=== PATIENT | male | born 1980 | race Caucasian/White ===

== ENCOUNTER 2021-02-27 11:35 | Emergency (ER) | payer SELFPAY ==
[2021-02-27 14:59] LABS: HEMOGLOBIN 13.6 gm/dl (14.0-17.5); RED BLOOD COUNT 4.59 M/UL (4.20-5.50); WHITE BLOOD COUNT 13.8 K/UL (4.5-11.0)
[2021-02-27 16:15] LABS: BUN/CREATININE RATIO 12 (0-10)
== END 2021-02-27 19:40 | disposition home or self-care (01) ==
LOC: ER1 11:35
PROVIDERS: Physician Assistant Medical
DX: K59.00 Constipation, unspecified (principal); F17.210 Nicotine dependence, cigarettes, uncomplicated
CPT/HCPCS: 74018; 80053; 81001; 83605; 85025; 96374; 99284; J0696; Q9967

== ENCOUNTER 2021-04-16 04:23 | Emergency (ER) | payer SELFPAY ==
[~2021-04-16] VITALS: Ht 172.7 cm; Wt 72.6 kg
[2021-04-16 05:38] LABS: HEMOGLOBIN 12.4 gm/dl (14.0-17.5); RED BLOOD COUNT 4.39 M/UL (4.20-5.50); WHITE BLOOD COUNT 10.7 K/UL (4.5-11.0)
[2021-04-16 05:54] LABS: BUN/CREATININE RATIO 21 (0-10)
== END 2021-04-16 10:06 | disposition short-term general hospital (02) ==
LOC: ER1 04:23
PROVIDERS: Physician Assistant
DX: M54.16 Radiculopathy, lumbar region (principal)
CPT/HCPCS: 51702; 80053; 80307; 81001; 83690; 85025; 87040; 87086; 96374; 96375; 99284; J1885; J2270; J2405; J3370; J7070; Q9967